=== PATIENT | female | born 1955 | race Caucasian/White ===

== ENCOUNTER → 2017-05-16 | Outpatient (CLI) | payer MEDICARE ==
[2017-05-16 11:29] LABS: Basophils % (A) 1 %; Eosinophils # (A) 0.1 k/uL (0-0.7); Eosinophils % (A) 3 %; HCT 37.9 % (34.0-46.0); HGB 12.6 gm/dL (11.4-16.0); Lymphocytes # (A) 1.3 k/uL (1.0-4.8); Lymphocytes % (A) 28 %; MCH 26.7 pg (25.0-35.0); MCHC 33.3 g/dL (31.0-37.0); Mean Platelet Volume 8.2; Monocytes # (A) 0.3 k/uL (0-1.0); Monocytes % (A) 6 %; Neutrophils # (A) 2.8 k/uL (1.3-7.7); Neutrophils % (A) 61 %; Platelet Count 203 k/uL (150-450); RBC 4.73 m/uL (3.80-5.40); RDW 14.7 % (11.5-15.5); WBC 4.7 k/uL (3.8-10.6)
[2017-05-16 12:08] LABS: Calcium 10.1 mg/dL (8.4-10.2); Potassium 4.2 mmol/L (3.5-5.1)
[2017-05-16 18:48] LABS: Hemoglobin A1C 5.2 % (4.0-6.0)
== END | disposition home or self-care (01) ==
LOC: LABWHC1 10:22
PROVIDERS: ATTEND Family Medicine
DX: Z00.00 Encounter for general adult medical examination without abnormal findings (principal); E11.9 Type 2 diabetes mellitus without complications; Z13.9 Encounter for screening, unspecified
CPT/HCPCS: 36415; 80048; 80061; 82043; 82570; 83036; 84443; 84450; 84460; 85025; 86803

== ENCOUNTER 2018-06-23 07:50 | Emergency (ER) | payer MEDICARE ==
[2018-06-23] MEDS ORDERED: KETOROLAC 30 MG/ML 1 ML VIAL IVP STA (08:19)
[2018-06-23] MEDS ORDERED: SODIUM CHLORIDE 0.9% 1,000 ML IV STA (08:19)
--- NOTE | 2018-06-23 08:31 | ED ---
Back Pain HPI - General Chief Complaint: Back Pain/Injury Stated Complaint: back & side pain Time Seen by Provider: 06/23/18 08:04 Source: patient, RN notes reviewed Mode of arrival: ambulatory Limitations: no limitations - History of Present Illness Initial Comments: This a 63-year-old female sent emergency Department chief complaint of right- sided back and flank pain. Patient states that it is worse with movement but denies any injury. Patient states that she recently drove back from [place] and she does have some pleuritic pain in that region. Patient states that she's concerned about possible PE. She did have some ice on it but has no leg pain currently no history of PE. Patient states that she does have some mild pain that radiates around into her abdomen. She does have a history kidney stones but states this feels different. No dysuria no hematuria denies any nausea vomiting diarrhea, fever or chills. Patient did try some Tylenol codeine with no relief of symptoms. Patient states that she has chronic right hip and right shoulder issues but states this feels different than her usual self. - Related Data Home Medications Medication Instructions Recorded Confirmed Acetaminophen-Codeine 300-30mg 1 - 2 tab PO Q4-6H PRN 06/23/18 06/23/18 [Tylenol w/codeine #3] Calcium Citrate 500 mg PO BID 06/23/18 06/23/18 Fenofibrate Nanocrystallized 145 mg PO DAILY 06/23/18 06/23/18 [Fenofibrate] Multivitamin/Iron/Folic Acid 1 tab PO DAILY 06/23/18 06/23/18 [Centrum Adults Tablet] Omeprazole [PriLOSEC] 20 mg PO DAILY 06/23/18 06/23/18 Propranolol HCl [Propranolol HCl 120 mg PO DAILY 06/23/18 06/23/18 ER] Simvastatin [Zocor] 40 mg PO HS 06/23/18 06/23/18 Vitamin B-12 Sl 1 tab SL MOWEFR 06/23/18 06/23/18 ZOLMitriptan [Zomig] 5 mg PO DAILY PRN 06/23/18 06/23/18 Previous Rx's Medication Instructions Recorded Cyclobenzaprine [Flexeril] 10 mg PO TID PRN #15 tab 06/23/18 Allergies Allergy/AdvReac Type Severity Reaction Status Date / Time sumatriptan [From Imitrex] Allergy Swelling Verified 06/23/18 07:58 Review of Systems ROS Statement: Those systems with pertinent positive or pertinent negative responses have been documented in the HPI. ROS Other: All systems not noted in ROS Statement are negative. Past Medical History Past Medical History: Cancer, Hyperlipidemia Additional Past Medical History / Comment(s): sacral nerve damage-seeing pain specialist, colon CA, migraines History of Any Multi-Drug Resistant Organisms: None Reported Past Surgical History: Appendectomy, Bowel Resection, Section, Orthopedic Surgery Additional Past Surgical History / Comment(s): right rotator cuff repair, neck surgery Past Psychological History: No Psychological Hx Reported Smoking Status: Former smoker Past Alcohol Use History: None Reported Past Drug Use History: None Reported General Exam General appearance: alert, in no apparent distress Head exam: Present: atraumatic, normocephalic, normal inspection Eye exam: Present: normal appearance, PERRL, EOMI. Absent: scleral icterus, con junctival injection, periorbital swelling Respiratory exam: Present: normal lung sounds bilaterally. Absent: respiratory distress, wheezes, rales, rhonchi, stridor Cardiovascular Exam: Present: regular rate, normal rhythm, normal heart sounds. Absent: systolic murmur, diastolic murmur, rubs, gallop, clicks GI/Abdominal exam: Present: soft, normal bowel sounds. Absent: distended, tenderness, guarding, rebound, rigid Back exam: Present: CVA tenderness (R). Absent: CVA tenderness (L) Neurological exam: Present: alert, oriented X3, CN II-XII intact Course Vital Signs 06/23/18 07:51 Temperature 98.4 F Pulse Rate 86 Respiratory 20 Rate Blood Pressure 154/82 O2 Sat by Pulse 98 Oximetry Medical Decision Making - Medical Decision Making 63-year-old female presents emergency from for right-sided back pain. This is reproducible pain worse with movement though there is some concerns of underlying acute abdominal process. CT was obtained labwork obtained no acute abnormality. Patient we discharged with mechanical back pain. Patient be discharged with muscle relaxers. Return parameters were discussed. - Lab Data Result diagrams: 06/23/18 08:55 06/23/18 08:55 Lab Results 06/23/18 06/23/18 06/23/18 Range/Units 08:55 08:55 08:55 WBC 6.4 (3.8-10.6) k/uL RBC 4.84 (3.80-5.40) m/uL Hgb 13.6 (11.4-16.0) gm/dL Hct 40.3 (34.0-46.0) % MCV 83.3 (80.0-100.0) fL MCH 28.2 (25.0-35.0) pg MCHC 33.9 (31.0-37.0) g/dL RDW 13.6 (11.5-15.5) % Plt Count 179 (150-450) k/uL Neutrophils % 70 % Lymphocytes % 18 % Monocytes % 6 % Eosinophils % 3 % Basophils % 1 % Neutrophils # 4.5 (1.3-7.7) k/uL Lymphocytes # 1.1 (1.0-4.8) k/uL Monocytes # 0.4 (0-1.0) k/uL Eosinophils # 0.2 (0-0.7) k/uL Basophils # 0.0 (0-0.2) k/uL D-Dimer 0.35 (<0.60) mg/L FEU Sodium 142 (137-145) mmol/L Potassium 3.6 (3.5-5.1) mmol/L Chloride 104 (98-107) mmol/L Carbon Dioxide 29 (22-30) mmol/L Anion Gap 9 mmol/L BUN 31 H (7-17) mg/dL Creatinine 0.82 (0.52-1.04) mg/dL Est GFR (CKD-EPI)AfAm 89 (>60 ml/min/1.73 sqM) Est GFR (CKD-EPI)NonAf 78 (>60 ml/min/1.73 sqM) Glucose 99 (74-99) mg/dL Plasma Lactic Acid Geraldo (0.7-2.0) mmol/L Calcium 10.2 (8.4-10.2) mg/dL Total Bilirubin 0.8 (0.2-1.3) mg/dL AST 44 H (14-36) U/L ALT 57 H (9-52) U/L Alkaline Phosphatase 68 (38-126) U/L Troponin I (0.000-0.034) ng/mL Total Protein 7.0 (6.3-8.2) g/dL Albumin 4.4 (3.5-5.0) g/dL Lipase 246 (23-300) U/L Urine Color Urine Appearance (Clear) Urine pH (5.0-8.0) Ur Specific [place] (1.001-1.035) Urine Protein (Negative) Urine Glucose (UA) (Negative) Urine Ketones (Negative) Urine Blood (Negative) Urine Nitrite (Negative) Urine Bilirubin (Negative) Urine Urobilinogen (<2.0) mg/dL Ur Leukocyte Esterase (Negative) Urine RBC (0-5) /hpf Urine WBC (0-5) /hpf Ur Squamous Epith Cells (0-4) /hpf Amorphous Sediment (None) /hpf Urine Bacteria (None) /hpf Urine Mucus (None) /hpf 06/23/18 06/23/18 06/23/18 Range/Units 08:55 08:55 09:00 WBC (3.8-10.6) k/uL RBC (3.80-5.40) m/uL Hgb (11.4-16.0) gm/dL Hct (34.0-46.0) % MCV (80.0-100.0) fL MCH (25.0-35.0) pg MCHC (31.0-37.0) g/dL RDW (11.5-15.5) % Plt Count (150-450) k/uL Neutrophils % % Lymphocytes % % Monocytes % % Eosinophils % % Basophils % % Neutrophils # (1.3-7.7) k/uL Lymphocytes # (1.0-4.8) k/uL Monocytes # (0-1.0) k/uL Eosinophils # (0-0.7) k/uL Basophils # (0-0.2) k/uL D-Dimer (<0.60) mg/L FEU Sodium (137-145) mmol/L Potassium (3.5-5.1) mmol/L Chloride (98-107) mmol/L Carbon Dioxide (22-30) mmol/L Anion Gap mmol/L BUN (7-17) mg/dL Creatinine (0.52-1.04) mg/dL Est GFR (CKD-EPI)AfAm (>60 ml/min/1.73 sqM) Est GFR (CKD-EPI)NonAf (>60 ml/min/1.73 sqM) Glucose (74-99) mg/dL Plasma Lactic Acid Geraldo 1.6 (0.7-2.0) mmol/L Calcium (8.4-10.2) mg/dL Total Bilirubin (0.2-1.3) mg/dL AST (14-36) U/L ALT (9-52) U/L Alkaline Phosphatase (38-126) U/L Troponin I <0.012 (0.000-0.034) ng/mL Total Protein (6.3-8.2) g/dL Albumin (3.5-5.0) g/dL Lipase (23-300) U/L Urine Color Yellow Urine Appearance Cloudy H (Clear) Urine pH 6.5 (5.0-8.0) Ur Specific [place] 1.021 (1.001-1.035) Urine Protein Negative (Negative) Urine Glucose (UA) Negative (Negative) Urine Ketones Negative (Negative) Urine Blood Negative (Negative) Urine Nitrite Negative (Negative) Urine Bilirubin Negative (Negative) Urine Urobilinogen <2.0 (<2.0) mg/dL Ur Leukocyte Esterase Negative (Negative) Urine RBC 1 (0-5) /hpf Urine WBC 2 (0-5) /hpf Ur Squamous Epith Cells 3 (0-4) /hpf Amorphous Sediment Few H (None) /hpf Urine Bacteria Rare H (None) /hpf Urine Mucus Rare H (None) /hpf Disposition Clinical Impression: Back pain Disposition: HOME SELF-CARE Condition: Stable Instructions (If sedation given, give patient instructions): Acute Low Back Pain (ED) Additional Instructions: Please return to the Emergency Department if symptoms worsen or any other concerns. Prescriptions: Cyclobenzaprine [Flexeril] 10 mg PO TID PRN #15 tab PRN Reason: Muscle Spasm Is patient prescribed a controlled substance at d/c from ED?: No Referrals: Dallas Pack DO [Primary Care Provider] - 1-2 days Time of Disposition: 11:02
[2018-06-23 09:25] LABS: Basophils % (A) 1 %; Eosinophils # (A) 0.2 k/uL (0-0.7); Eosinophils % (A) 3 %; HCT 40.3 % (34.0-46.0); HGB 13.6 gm/dL (11.4-16.0); Lymphocytes # (A) 1.1 k/uL (1.0-4.8); Lymphocytes % (A) 18 %; MCH 28.2 pg (25.0-35.0); MCHC 33.9 g/dL (31.0-37.0); MCV 83.3 fL (80.0-100.0); Mean Platelet Volume 7.3; Monocytes # (A) 0.4 k/uL (0-1.0); Monocytes % (A) 6 %; Neutrophils # (A) 4.5 k/uL (1.3-7.7); Neutrophils % (A) 70 %; Platelet Count 179 k/uL (150-450); RBC 4.84 m/uL (3.80-5.40); RDW 13.6 % (11.5-15.5); WBC 6.4 k/uL (3.8-10.6)
[2018-06-23 09:28] LABS: Albumin 4.4 g/dL (3.5-5.0); Calcium 10.2 mg/dL (8.4-10.2); Potassium 3.6 mmol/L (3.5-5.1); Total Bilirubin 0.8 mg/dL (0.2-1.3)
[2018-06-23 09:32] LABS: Amorphous Sediment,Urine Few /hpf; Appearance,Urine Cloudy (Clear); Bacteria,Urine Rare /hpf; Bilirubin,Urine Negative (Negative); Blood,Urine Negative (Negative); Color,Urine Yellow; Glucose,Urine (UA) Negative (Negative); Ketones,Urine Negative (Negative); Leukocyte Esterase,Urine Negative (Negative); Mucus,Urine Rare /hpf; Nitrite,Urine Negative (Negative); PH, Urine 6.5 (5.0-8.0); Protein,Urine Negative (Negative); RBC,Urine 1 /hpf (0-5); Specific Gravity,Urine 1.021 (1.001-1.035); Squamous Epithelial Cell,Urine 3 /hpf (0-4); Urobilinogen,Urine <2.0 mg/dL (<2.0)
--- NOTE | 2018-06-23 10:57 | CT ---
EXAMINATION TYPE: CT abdomen pelvis wo con DATE OF EXAM: 06/23/2018 HISTORY: Rt flank pain. History of gastric sleeve and bowel resection for colon cancer. CT DLP: 719.6 mGycm. Automated Exposure Control for Dose Reduction was Utilized. TECHNIQUE: CT scan of the abdomen and pelvis is performed without oral or IV contrast. COMPARISON: NONE FINDINGS: Within the limitations of a non-contrast study, the following observations are made. LUNG BASES: No significant abnormality is appreciated. LIVER/GB: Liver is diffusely low dense consistent with fatty infiltration PANCREAS: No significant abnormality is seen. SPLEEN: Mild splenomegaly is seen measuring 13.2 cm long axis coronal image 66. ADRENALS: There is nonspecific 2.1 x 1.7 cm left adrenal mass axial image 33, Hounsfield units averag e [address] KIDNEYS: No renal stones or hydronephrosis is present bilaterally. No intraluminal calculi in the caitlin dder. BOWEL: Sutures from gastric sleeve noted epigastric region. Evaluation of bowel is suboptimal seconda ry to lack of enteric contrast. Ligament of Treitz is slightly low in position. No suspicious small o r large bowel dilatation. Surgical sutures from right-sided partial colectomy and small bowel anastom osis noted. GENITAL ORGANS: Uterus is surgically absent or markedly atrophic LYMPH NODES: No greater than 1cm abdominal or pelvic lymph nodes are appreciated. OSSEOUS STRUCTURES: Moderate to severe narrowing at the lumbosacral junction with moderate spurring i s present. There is mild to moderate multilevel anterior and lateral spurring in the thoracic spine. There is moderate narrowing and spurring in both hip joints. Some facet arthropathy in the lower lumb ar spine is present. OTHER: No significant additional abnormality is seen. IMPRESSION: No renal stones or hydronephrosis is seen bilaterally. No suspicious acute finding is see n to account for patient's symptoms.
[2018-06-23] MEDS ORDERED: HYDROcodone/APAP 7.5-325MG 1 EACH TAB PO ONE (11:15)
[2018-06-23 11:29] VITALS: BP 115/62; PULSE 66; RESP 18; TEMP 97.5
== END 2018-06-23 11:29 | disposition home or self-care (01) ==
LOC: EC 07:50
DX: M54.9 Dorsalgia, unspecified (principal); R10.9 Unspecified abdominal pain; R07.81 Pleurodynia; E78.5 Hyperlipidemia, unspecified; Z85.038 Personal history of other malignant neoplasm of large intestine; Z90.49 Acquired absence of other specified parts of digestive tract; Z87.442 Personal history of urinary calculi; Z98.890 Other specified postprocedural states; Z87.891 Personal history of nicotine dependence; Z79.899 Other long term (current) drug therapy; Z88.8 Allergy status to other drugs, medicaments and biological substances
CPT/HCPCS: 36415; 85379; 80053; 83605; 83690; 84484; 85025; 81001; 74176; 99284; 96374; 96361 ×2; J1885

== ENCOUNTER → 2018-08-19 | Outpatient (CLI) | payer OTHER, MEDICARE ==
--- NOTE | 2018-08-19 15:24 | CT ---
EXAMINATION TYPE: CT pelvis wo con DATE OF EXAM: 08/19/2018 COMPARISON: 06/23/2018 HISTORY: 63-year-old female Pre surgical for SI joint fusion TECHNIQUE: Contiguous axial scanning of the pelvis without IV contrast. Coronal and sagittal reconstr uctions performed. CT DLP: 684 mGycm Automated exposure control for dose reduction was used. FINDINGS: Tiny fatty umbilical hernia. Visualized lower abdomen shows stable alignment with prior colonic anast omosis right mid abdomen. Scattered mild to moderate stool is present. No dilated small bowel or free fluid seen. No lower abdominal or pelvic lymphadenopathy appreciated. Bladder nondistended. Uterus surgically absent. Both ovaries are visualized. Mild pelvic floor relaxa tion is suggested. Mild degenerative spurring of the hips. Advanced degenerative disc disease L5-S1 along with facet arthropathy. Changes result in moderate to severe left neuroforaminal stenosis. Minimal marginal spurring and some vacuum at the bilateral SI joints. No subarticular erosions or sub articular sclerosis. IMPRESSION: 1. MINIMAL MARGINAL SPURRING AND SOME VACUUM AT THE BILATERAL SI JOINTS. NO SUBARTICULAR EROSIONS OR SCLEROSIS. 2. ADVANCED DEGENERATIVE DISC DISEASE AT L5-S1 AND FACET ARTHROPATHY. CHANGES RESULT IN A MODERATE TO SEVERE LEFT NEUROFORAMINAL STENOSIS.
== END | disposition home or self-care (01) ==
LOC: RADCTMAIN 12:28
PROVIDERS: ATTEND Orthopaedic Surgery
DX: M48.07 Spinal stenosis, lumbosacral region (principal); M51.37 Other intervertebral disc degeneration, lumbosacral region; M46.97 Unspecified inflammatory spondylopathy, lumbosacral region
CPT/HCPCS: 72192

== ENCOUNTER → 2019-04-16 | Outpatient (CLI) | payer OTHER ==
--- NOTE | 2019-04-16 08:44 | CT ---
EXAMINATION TYPE: CT shoulder RT wo con DATE OF EXAM: 04/16/2019 COMPARISON: None. HISTORY: Osteoarthritis right shoulder glenohumeral joint per order, patient has history of prior rot ator cuff surgical repair. CT DLP: 557.9 mGycm Automated exposure control for dose reduction was used. FINDINGS: Localizer shows artifact distortion supraclavicular region most prominent involving left humeral head . There is surgical change near cervicothoracic junction. Acromioclavicular joint shows moderate narrowing with mild to moderate capsular hypertrophy and mild spurring. Distal acromion morphology unremarkable. Glenohumeral joint shows moderate to severe narrowing most prominent inferiorly where there is promin ent spur from the medial margin of the humeral head coronal image 30. There is subchondral cystic kiesha nge in the osseous glenoid most prominent inferiorly. No large effusion noted. Rotator cuff muscle bulk fairly well maintained. Sclerosis from prior rotator cuff surgery seen anter iorly on image 19 in the humeral head. Right axillary region unremarkable. Visualized right lung is clear. Visualized right ribs are intact. IMPRESSION: As above.
== END | disposition home or self-care (01) ==
LOC: RADCTMAIN 07:11
PROVIDERS: ATTEND Orthopaedic Surgery Sports Medicine
DX: M89.311 Hypertrophy of bone, right shoulder (principal); M25.811 Other specified joint disorders, right shoulder; M94.8X1 Other specified disorders of cartilage, shoulder; M19.011 Primary osteoarthritis, right shoulder; Z98.890 Other specified postprocedural states